=== PATIENT | female | born 1940 | race Caucasian/White ===

== ENCOUNTER 2017-07-25 10:22 | Inpatient (IN) | payer MEDICARE, MEDICAID ==
--- NOTE | 2017-07-25 10:55 | EDM.PDOC ---
ED HPI GENERAL MEDICAL PROBLEM - General Chief Complaint: Chest Pain Stated Complaint: CHEST PAIN Time Seen by Provider: 07/25/17 10:49 Source of Information: Reports: Patient, EMS, EMS Notes Reviewed History Limitations: Reports: No Limitations - History of Present Illness INITIAL COMMENTS - FREE TEXT/NARRATIVE: SHE IS A 77-YEAR-OLD FEMALE FROM [facility] WHO PRESENTS VIA EMS FOR COMPLAINT OF CHEST PAIN AND SHORTNESS OF BREATH THAT STARTED A SHORT TIME AGO. DESCRIBED SHARP, LEFT SIDED OF CHEST, AND CONSTANT. PATIENT IS DNR STATUS AND PAPERWORK WAS AVAILABLE UPON PRESENTATION TO ER. PATIENT STATES SHE FELT FINE YESTERDAY AND THIS MORNING AND HAS NO OTHER COMPLAINTS. 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: Breathing Treatments, IV/IO, Nitroglycerin, Other Medication(s), Oxygen Abdominal Pain Score (Numeric/FACES): 7 - Related Data Allergies Allergy/AdvReac Type Severity Reaction Status Date / Time Penicillins Allergy Cannot Verified 07/25/17 10:50 Remember Home Meds: Home Meds Aspirin 325 mg PO DAILY 10/28/16 [History] Furosemide 80 mg PO DAILY 10/28/16 [History] Omeprazole 20 mg PO DAILY 10/28/16 [History] Simvastatin [Zocor] 40 mg PO BEDTIME 10/28/16 [History] Isosorbide Mononitrate [Isosorbide Mononitrate ER] 30 mg PO DAILY 06/16/17 [ History] Minoxidil [Minoxidil] 20 mg PO DAILY 06/16/17 [History] Multivitamins with Iron [Daily Naye with Iron] 1 tab PO DAILY 06/16/17 [History] Pramipexole [Mirapex] 1 - 2 tab PO BEDTIME 06/16/17 [History] Sennosides/Docusate Sodium [Senna Plus Tablet] 2 tab PO BID 06/16/17 [History] Carvedilol [Coreg] 6.25 mg PO BID 07/25/17 [History] Enalapril Maleate [Vasotec] 10 mg PO DAILY 07/25/17 [History] L.acidoph,Paracasei, B.lactis [Probiotic] 1 cap PO BID 07/25/17 [History] Levofloxacin [Levaquin] 500 mg PO DAILY 07/25/17 [History] guaiFENesin [Mucinex] 600 mg PO BID 07/25/17 [History] Past Medical History HEENT History: Reports: Cataract Cardiovascular History: Reports: High Cholesterol, Hypertension Gastrointestinal History: Reports: GERD Genitourinary History: Reports: Other (See Below) Other Genitourinary History: CKD Stage 3 Endocrine/Metabolic History: Reports: Other (See Below) Other Endocrine/Metabolic History: DM Type II Dermatologic History: Reports: Cellulitis - Past Surgical History GI Surgical History: Reports: Other (See Below) Musculoskeletal Surgical History: Reports: Arthroscopic Knee, Carpal Tunnel, Other (See Below) Social & Family History - Family History Family Medical History: Noncontributory - Tobacco Use Smoking Status *Q: Unknown Ever Smoked - Caffeine Use Caffeine Use: Reports: None - Recreational Drug Use Recreational Drug Use: No ED ROS GENERAL - Review of Systems Review Of Systems: ROS reveals no pertinent complaints other than HPI. Constitutional: Reports: No Symptoms HEENT: Reports: No Symptoms Respiratory: Reports: Shortness of Breath Cardiovascular: Reports: Chest Pain Endocrine: Reports: No Symptoms GI/Abdominal: Reports: No Symptoms : Reports: No Symptoms Musculoskeletal: Reports: No Symptoms Skin: Reports: No Symptoms Neurological: Reports: No Symptoms Psychiatric: Reports: No Symptoms Hematologic/Lymphatic: Reports: No Symptoms Immunologic: Reports: No Symptoms ED EXAM, GENERAL - Physical Exam Exam: See Below Exam Limited By: No Limitations General Appearance: Alert, WD/WN, No Apparent Distress Nose: Normal Inspection, No Blood Throat/Mouth: Normal Inspection, Normal Oropharynx, No Airway Compromise Head: Atraumatic, Normocephalic Neck: Normal Inspection Respiratory/Chest: Decreased Breath Sounds, Rales Cardiovascular: No Murmur, Tachycardia GI/Abdominal: Normal Bowel Sounds, Soft, Non-Tender, No Organomegaly, No Distention, No Abnormal Bruit, No Mass Back Exam: Normal Inspection. No: CVA Tenderness (L), CVA Tenderness (R) Extremities: Pedal Edema (EXTENSIVE 3+ OF CHRONIC NATURE) Neurological: Alert, Oriented, Normal Cognition Psychiatric: Normal Affect, Normal Mood Skin Exam: Warm, Dry, Intact, Normal Color, No Rash Lymphatic: No Adenopathy EKG INTERPRETATION EKG Date: 07/25/17 Time: 10:40 Rate (Beats/Min): 115 [place]: Normal P-Wave: Present QRS: Normal Comparison: NA - No Prior EKG Course - Vital Signs Last Recorded V/S: Last Vital Signs Temp 96.7 F 07/25/17 10:38 Pulse 116 H 07/25/17 10:38 Resp 38 H 07/25/17 10:38 BP 152/80 H 07/25/17 10:38 Pulse Ox 79 L 07/25/17 10:38 - Orders/Labs/Meds Orders: Active Orders 24 hr Category Date Time Status EKG Documentation Completion [RC] ASDIRECTED Care 07/25/17 10:36 Active Chest 1V Frontal [CR] Routine Exams 07/25/17 Ordered B-TYPE NATRIURETIC PEPTIDE,BNP [CHEM] Stat Lab 07/25/17 10:40 Received CBC WITH AUTO DIFF [HEME] Stat Lab 07/25/17 10:40 Received COMPREHENSIVE METABOLIC PN,CMP [CHEM] Stat Lab 07/25/17 10:40 Received TROPONIN I [CHEM] Stat Lab 07/25/17 10:40 Received EKG 12 Lead [EK] Routine Ther 07/25/17 10:34 Ordered - Radiology Interpretation Free Text/Narrative:: CXR SHOWS MILD CHF Departure - Departure Time of Disposition: 12:19 Disposition: Admitted As Inpatient 66 Condition: Fair Clinical Impression: CHF (congestive heart failure) Qualifiers: Congestive heart failure type: unspecified congestive heart failure type Congestive heart failure chronicity: acute on chronic Qualified Code(s): I50.9 - Heart failure, unspecified Chest pain Qualifiers: Chest pain type: unspecified Qualified Code(s): R07.9 - Chest pain, unspecified Referrals: Christiane Sewell MD [Primary Care Provider] - - My Orders Last 24 Hours: My Active Orders 07/25/17 Chest 1V Frontal [CR] Routine 07/25/17 10:34 EKG 12 Lead [EK] Routine 07/25/17 10:36 EKG Documentation Completion [RC] ASDIRECTED 07/25/17 10:40 B-TYPE NATRIURETIC PEPTIDE,BNP [CHEM] Stat CBC WITH AUTO DIFF [HEME] Stat COMPREHENSIVE METABOLIC PN,CMP [CHEM] Stat TROPONIN I [CHEM] Stat - Assessment/Plan Admission H&P: Please use this note as an admission H&P Last 24 Hours: My Active Orders 07/25/17 Chest 1V Frontal [CR] Routine 07/25/17 10:34 EKG 12 Lead [EK] Routine 07/25/17 10:36 EKG Documentation Completion [RC] ASDIRECTED 07/25/17 10:40 B-TYPE NATRIURETIC PEPTIDE,BNP [CHEM] Stat CBC WITH AUTO DIFF [HEME] Stat COMPREHENSIVE METABOLIC PN,CMP [CHEM] Stat TROPONIN I [CHEM] Stat Assessment:: CHEST PAIN, CHF. Plan: ADMITTED TO INPATIENT.
[2017-07-25 11:15] LABS: CHLORIDE,CL 109 mmol/L (98-115); SODIUM,NA 143 mmol/L (136-145)
[2017-07-25] MEDS ORDERED: Furosemide 40 MG/4 ML VIAL IVPUSH ONE (11:29)
[2017-07-25] MEDS ORDERED: Magnesium Hydroxide 400 MG/5 ML Susp 30 ML Cup PO PRN (12:41)
[2017-07-25] MEDS ORDERED: Furosemide 40 MG Tab PO SCH (13:45)
[2017-07-25] MEDS ORDERED: Sodium Chloride 0.9% 250 ML IV SCH (17:45)
[2017-07-25] MEDS ORDERED: Metoprolol Succinate 25 MG Tab.ER PO SCH (17:45)
[2017-07-25] MEDS ORDERED: Carvedilol 6.25 MG Tab PO SCH (18:00)
[2017-07-25] MEDS: Insuln Aspart Prot/Insulin Aspart 100 Units/ML 3 ML FlexPen SUBCUT SCH (18:05)
[2017-07-25] MEDS: Carvedilol 6.25 MG Tab PO SCH (18:46)
[2017-07-25] MEDS: Simvastatin 20 MG Tab PO SCH (21:05)
[2017-07-25] MEDS ORDERED: Non-Formulary Medication 1 Each (Hydrocodone/Acetaminophen [Hydrocodon-Acetaminoph 7.5-325 PO PRN (21:20)
[2017-07-25] MEDS: Acetaminophen/HYDROcodone 325-5 MG Tab PO PRN (22:21)
[2017-07-26] MEDS: Furosemide 40 MG Tab PO SCH ×2 (06:36→12:26)
[2017-07-26] MEDS: Omeprazole 20 MG Cap.CR PO SCH (08:03)
[2017-07-26] MEDS: Carvedilol 6.25 MG Tab PO SCH ×2 (08:04→17:54)
[2017-07-26] MEDS: Isosorbide Mononitrate 30 MG Tab.ER PO SCH (08:05)
[2017-07-26] MEDS: Aspirin 325 MG Tab.EC PO SCH (08:05)
[2017-07-26] MEDS: Insuln Aspart Prot/Insulin Aspart 100 Units/ML 3 ML FlexPen SUBCUT SCH ×2 (08:05→17:55)
[2017-07-26] MEDS: Levofloxacin 500 MG Tab PO SCH (08:06)
--- NOTE | 2017-07-26 08:25 | PN ---
07/25/2017PATIENT NAME: VERONICA BEAULIEU SUBJECTIVE: This is 77-year-old female who was admitted to the emergency room today with shortness of breath and chest pain. Her lab results have shown that she does have an elevated troponin I of 0.37. On repeat at 4 p.m. this afternoon, the troponin I went up to 1.84. The patient is aware that she is having a myocardial infarction. She is a DNR/DNI and is full aware of her condition as well as prognosis. I did review with her options for transfer to a higher level of care; however, because of her advanced directive, she does not wish to have that done. She does have a history of congestive heart failure and her BNP today was 580. Other significant lab value, she did have a white count today of 13.9. She was started on Levaquin yesterday for bronchial infection, and we will continue on the Levaquin while she is here. She has been hypotensive since she has arrived with systolic blood pressure in the 90s and diastolic in the 50s. Her heart rhythm has been tachycardic at 112 to 120 beats per minute. Her oxygen saturations have ranged from 78% to 96%, she is on oxygen therapy. We did place her on telemetry to monitor for [id number] rhythms that could be possibly treatable to make her more comfortable. We will repeat lab work in the morning to include a CBC, CMP as well as troponin I. She is a [facility] patient and was to have a home evaluation to see if she was ready to be discharged from the [facility]. She has been in the [facility] in [place], [place], due to lower extremity swelling as well as cellulitis. This has improved considerably over a period of time, which has been a month that she has been there. Because of her hypotension and her tachycardia, we will give her a fluid bolus of 250 mL of normal saline given over 2 hours and resume her Coreg or carvedilol at 6.25 mg b.i.d. We will monitor closely for desaturation and pulmonary edema. I have discussed the case with Christiane Callejas, and she fully agrees with the plan of care. I have also spoken with the patient's daughter, Maria Antonia Jensen, she was just walking into the hospital as I was preparing to call her. Maria Antonia, her , and two children were made aware of Veronica's condition and the plan of care and they fully agree with our medical care plan. /[id number]/MODL
[2017-07-26] MEDS ORDERED: MINOXIDIL PO SCH (09:00)
[2017-07-26] MEDS ORDERED: Nitroglycerin 0.4 MG Tab.SL SL PRN (11:35)
[2017-07-26] MEDS ORDERED: Lidocaine 2% 100 MG/5 ML Syringe IVPUSH PRN (11:35)
[2017-07-26] MEDS ORDERED: Atropine 0.1 MG/ML 10 ML Syringe IVPUSH PRN (11:35)
[2017-07-26] MEDS ORDERED: EPINEPHrine 1:10,000 1 MG/10 ML Syringe IVPUSH PRN (11:35)
[2017-07-26] MEDS ORDERED: Acetaminophen/HYDROcodone 325-5 MG Tab PO PRN (11:55)
[2017-07-26] MEDS: Acetaminophen/HYDROcodone 325-5 MG Tab PO PRN ×2 (15:29→23:04)
--- NOTE | 2017-07-26 19:25 | PN ---
07/26/2017 PATIENT NAME: VERONICA BEAULIEU SUBJECTIVE: This is a 77-year-old female who was admitted to the hospital yesterday on 07/25/2017 from the emergency room. Her chief complaint at that time was some chest pain and shortness of breath. She did have an elevated troponin on admission of 0.37, later yesterday, the troponin peaked at 1.84. This morning, the troponin is 1.11, which has improved. She was hypotensive yesterday. Her ANGELIQUE inhibitor was discontinued. She was continued on carvedilol as previously prescribed at 6.25 mg daily. We did give her a 250 mL bolus of normal saline today, her blood pressure has improved considerably. Her blood pressure today has ranged between 117/56, 126/58, and 143/69. Clinically, she is feeling better. She states that she does not have any chest pain. She states she does get short of breath at some point in time. She does have a history of congestive heart failure in the past. Her admission BNP was 580. Her white blood cell count yesterday was 13.9. She is on oral Levaquin for possible bronchitis prior to admission. Hemoglobin was 9.3 yesterday, now 8.1 today. She has been on telemetry and she has been in a sinus rhythm to sinus tachycardia, pulse ranging from 70s to 80s with a high of 100. O2 saturations are 96% to 97% on 1 L of oxygen. She has been at the [place], [place] with cellulitis of her lower legs and some open ulcerations to her right lower extremity. These have improved considerably. Yesterday, prior to admission, she was scheduled to have a home visit to see if she was ready for discharge. This will obviously be postponed now. OBJECTIVE: VITAL SIGNS: On examination, temp is 97.7, pulse 83, respirations 20, blood pressure 143/69. SKIN: Warm and dry to touch, somewhat pale. CARDIAC: Reveals S1, S2 to be normal. Rate and rhythm are regular. She does have a 2/6 murmur holosystolic. LUNGS: Clear, possibly diminished. I do not hear any rales, wheezes, or rhonchi. Lower extremity, she does have an open ulceration on the right lower extremity, which is scabbed over. The edema to the right lower extremity has greatly improved from previous. However, I do not have any luxury of comparison. She does have some edema in her right foot distal to where the right lower extremity is wrapped. IMPRESSION: 1. Myocardial infarction. This is improving. Her troponins are trending downward. We will keep her in the hospital until her troponins are near normal if not normal. 2. Congestive heart failure. This is stable at this time. We will continue her on Coreg as well as Lasix. 3. We will keep on her isosorbide as previously prescribed for congestive heart failure as well. 4. Bronchitis, prior to admission. She will continue on oral Levaquin for this. 5. She is diabetic, blood sugars have been stable. We will continue her on her diabetic regimen. 6. Gastroesophageal reflux disease. We will continue her on omeprazole. 7. Hypercholesterolemia. She is on a statin. We will continue to follow her throughout the weekend. /[id number]/MODL
[2017-07-26] MEDS: Simvastatin 20 MG Tab PO SCH (20:41)
[2017-07-27] MEDS: Acetaminophen/HYDROcodone 325-5 MG Tab PO PRN ×3 (00:04→20:00)
[2017-07-27] MEDS: Furosemide 40 MG Tab PO SCH ×2 (06:41→11:19)
[2017-07-27 07:43] LABS: CHLORIDE,CL 108 mmol/L (98-115); SODIUM,NA 141 mmol/L (136-145)
[2017-07-27] MEDS: Omeprazole 20 MG Cap.CR PO SCH (07:55)
[2017-07-27] MEDS: Insuln Aspart Prot/Insulin Aspart 100 Units/ML 3 ML FlexPen SUBCUT SCH ×2 (07:56→17:48)
[2017-07-27] MEDS: Carvedilol 6.25 MG Tab PO SCH (07:56)
[2017-07-27] MEDS: Isosorbide Mononitrate 30 MG Tab.ER PO SCH (08:27)
[2017-07-27] MEDS: Aspirin 325 MG Tab.EC PO SCH (08:27)
[2017-07-27] MEDS: Levofloxacin 500 MG Tab PO SCH (08:28)
[2017-07-27] MEDS ORDERED: Carvedilol 6.25 MG Tab PO ONE (10:45)
--- NOTE | 2017-07-27 11:16 | PN ---
07/27/2017 PATIENT NAME: VERONICA BEAULIEU SUBJECTIVE: This is a 77-year-old female, who was admitted through the emergency room on 07/25/2017, with chest pain and shortness of breath. The patient did sustain a non-STEMI. She is a DNI/DNR and chose medical treatment. Her initial troponin I was 0.37 and peaked at 1.84 on 07/25/2017, it has now come down yesterday to 1.11 and today 0.22. She is feeling and looking incredibly better than she was on admission. She was taking minoxidil for hypertension. This was discontinued because she was somewhat hypotensive upon admission. We do not have minoxidil, so we will give her lisinopril 5 mg starting today. When talking to the patient, she states she feels good. She has some baseline shortness of breath. However, no chest pain at this time. She has been in a long-term care facility in [place], [place] for cellulitis of her lower extremities and ulcerations of the same. These have improved over the month that she has been at the [facility]. Today that she was admitted to the hospital, she was scheduled for a home evaluation, to be discharged back to her own home, this obviously will be postponed until after she is discharged. PHYSICAL EXAMINATION: VITAL SIGNS: Temperature is 98, pulse 84, respirations 20, blood pressure 160/88, O2 saturation is 95% on 2 L of oxygen. SKIN: Warm and dry to touch. CARDIAC: Reveals S1, S2 to be normal. Rate and rhythm are regular. She does have a 2/6 murmur, holosystolically. LUNGS: Clear without rales, wheezes, or rhonchi. She does have some pedal edema bilaterally. EXTREMITIES: The edema of the right lower extremity, which was present with cellulitis with the ulcerations has improved per the patient's report. IMPRESSION: 1. Myocardial infarction. Troponin I is trending downward at 0.22. We will order another troponin for morning and plan for discharge either tomorrow or Saturday. I am not certain that the [facility] will [facility] her back tomorrow being it is a weekend, however, staying until Saturday is no problems since she does meet inpatient criteria. 2. Congestive heart failure. This is stable at this time. We will continue her on Coreg as well as Lasix. She will also continue on isosorbide. 3. Bronchitis. Prior to admission, she is on oral Levaquin and her white count has normalized. 4. History of diabetes, has been stable. Continue same regimen. 5. Gastroesophageal reflux disease. Continue omeprazole. 6. Hypercholesterolemia. She is on a statin. We will continue the statin as before. 7. Hypertension. She was hypotensive upon admission. Her ANGELIQUE inhibitor was discontinued. We will add lisinopril 5 mg daily to her medication regimen and repeat labs tomorrow and continue to monitor. Dr. Christiane Sewell is aware of my findings and has been following the patient electronically. /[id number]/MODL
[2017-07-27] MEDS ORDERED: Carvedilol 6.25 MG Tab PO SCH (18:00)
[2017-07-27] MEDS: Simvastatin 20 MG Tab PO SCH (20:00)
[2017-07-28] MEDS: Acetaminophen/HYDROcodone 325-5 MG Tab PO PRN ×3 (03:30→22:03)
[2017-07-28] MEDS ORDERED: Morphine 2 MG/ML Syringe IVPUSH PRN (06:16)
[2017-07-28] MEDS: Furosemide 40 MG Tab PO SCH ×2 (06:53→12:03)
[2017-07-28] MEDS: Omeprazole 20 MG Cap.CR PO SCH (07:32)
[2017-07-28] MEDS: Isosorbide Mononitrate 30 MG Tab.ER PO SCH ×2 (07:32→08:34)
[2017-07-28] MEDS: Carvedilol 12.5 MG Tab PO SCH ×4 (07:33→18:14)
[2017-07-28] MEDS: Insuln Aspart Prot/Insulin Aspart 100 Units/ML 3 ML FlexPen SUBCUT SCH ×2 (08:33→18:16)
[2017-07-28] MEDS: Aspirin 325 MG Tab.EC PO SCH (08:34)
[2017-07-28] MEDS: Levofloxacin 500 MG Tab PO SCH (08:35)
[2017-07-28] MEDS ORDERED: GI Cocktail 45 ML BOTTLE PO ONE (10:00)
[2017-07-28] MEDS: Simvastatin 20 MG Tab PO SCH (20:12)
[2017-07-29] MEDS: Acetaminophen/HYDROcodone 325-5 MG Tab PO PRN (06:21)
[2017-07-29] MEDS: Furosemide 40 MG Tab PO SCH (06:21)
[2017-07-29] MEDS: Omeprazole 20 MG Cap.CR PO SCH (07:34)
[2017-07-29] MEDS: Carvedilol 12.5 MG Tab PO SCH (07:38)
[2017-07-29 07:39] VITALS: BP 174/87
[2017-07-29 07:39] LABS: CHLORIDE,CL 105 mmol/L (98-115); SODIUM,NA 140 mmol/L (136-145)
--- NOTE | 2017-07-29 08:21 | PN ---
07/27/2017PATIENT NAME: VERONICA BEAULIEU CHICO ADDENDUM: In my note, I stated that we would add lisinopril in for her blood pressure. I spoke with Dr. Christiane Callejas who recommended we increase her Coreg rather than start the ANGELIQUE inhibitor at this time. She was taking 6.25 mg of Coreg b.i.d., we increased the morning dose to 12.5, and continued the evening dose to 6.25. /[id number]/MODL
--- NOTE | 2017-07-29 08:21 | PN ---
07/28/2017PATIENT NAME: VERONICA BEAULIEU SUBJECTIVE: This is a 77-year-old female, who was admitted to the hospital on 07/25/2017 to the emergency room for chest pain and shortness of breath. She was found to have a myocardial infarction with her troponin peaking at 1.84. It has been trending down since that time with a troponin today of 0.11. She had an episode in middle of the night where she had some chest/epigastric pain. She was given a nitroglycerin as well as 2 mg of morphine which did sorin the pain. She became hypertensive as well as tachycardic during this episode. My fear was that she was extended her CT. Troponin this morning is as previously reported. I entertained the thought of discharging her today, but since she had that episode last night, I would be very reluctant to think about discharge. Tomorrow would be more likely as long as she stays stable. She is a DNR/DNI. She does have a history of hypertension and was hypotensive upon admission. Her ANGELIQUE inhibitor was discontinued at that time. Yesterday, we entertained possibility of adding an ANGELIQUE inhibitor. However, after I talked to Christiane Callejas, her primary care provider, she recommended that we adjust the Coreg that she was already taking more for cardioprotection. Prior to yesterday, she was on 6.25 mg of Coreg b.i.d. We increased her morning dose to 12.5 mg and kept her evening dose at 6.25. She continues to be hypertensive today. We will change the Coreg to 12.5 mg b.i.d. When I spoke with the patient and examined the patient this morning, she states she is more comfortable. She did not sleep well last night. The episode of chest pain did improve with the medications, also after having a bowel movement. I do have question whether this is cardiac versus gastrointestinal pain. She is on omeprazole for gastroesophageal reflux disease. She is on telemetry, sinus rhythm with a rate of 71 beats per minute without ectopics. PHYSICAL EXAMINATION: VITAL SIGNS: Temp is 97.6, pulse is 85, respirations 24, blood pressure 162/85, O2 saturation is 98% on 2 L of oxygen. SKIN: Warm, somewhat pale. CARDIAC: Reveals S1, S2 to be normal. Rate and rhythm are regular. She does have a 2/6 holosystolic cardiac murmur. LUNGS: Clear. I do not auscultate any rales, rhonchi, or wheezing. ABDOMEN: Soft. EXTREMITIES: She does have wraps to her lower extremities from previous cellulitis. The ulceration to the right lower extremity is stable at this time. IMPRESSION: 1. Myocardial infarction. Question whether or not this is extending. However, the troponin today was 0.11, whereas it was 0.22 yesterday, it peaked at 1.84 on July 26 2017. Also of note, the troponin was drawn at the same time that the patient was having the episode of chest pain, so we will repeat her troponin tomorrow to see if there is evidence of her extending. She will need an echocardiogram as an outpatient. The patient was concerned of how big of a heart attack she had. This would be best determined by echocardiogram. We will continue to monitor closely with telemetry. 2. Congestive heart failure, this is stable. We will continue her on Coreg, Lasix, and isosorbide. 3. She was treated for bronchitis with oral Levaquin prior to her admission, this is stable. 4. History of diabetes, this is stable. 5. Gastroesophageal reflux disease with some question of the episodic chest pain being GI related. Continue omeprazole and we will order a GI cocktail for her. 6. Hypercholesterolemia. She continues on statin therapy. 7. Hypertension. She was hypotensive upon admission. ANGELIQUE inhibitor was held. We entertained starting lisinopril yesterday, however, due to the cardioprotective properties of Coreg, we decided to titrate the dose of Coreg for blood pressure control. The ANGELIQUE will be added in later. We will increase her Coreg to 12.5 mg b.i.d. today. /[id number]/MODL
--- NOTE | 2017-07-29 08:21 | PN ---
07/27/2017PATIENT NAME: VERONICA BEAULIEU CHICO ADDENDUM: This is the second addendum on Veronica Beaulieu. Documentation in regard to the Coreg. The Coreg is being increased due to cardioprotection and blood pressure control. ANGELIQUE inhibitor will be restarted as the blood pressure allows. Documentation is already in place for holding the ANGELIQUE inhibitor due to hypotension on admission. /[id number]/MODL
[2017-07-29] MEDS: Insuln Aspart Prot/Insulin Aspart 100 Units/ML 3 ML FlexPen SUBCUT SCH (08:23)
[2017-07-29] MEDS: Isosorbide Mononitrate 30 MG Tab.ER PO SCH (08:25)
[2017-07-29] MEDS: Levofloxacin 500 MG Tab PO SCH (08:26)
[2017-07-29] MEDS: Aspirin 325 MG Tab.EC PO SCH (08:26)
--- NOTE | 2017-07-29 08:55 | PCM.DCSUM1 ---
Discharge Summary - Hospital Course Free Text/Narrative:: Nicole is being discharged today from an inpatient stay for NSTEMI. She was admitted 07/25/17 - 07/29/17. She had left sided chest pain with associated SOB. Troponin peaked at 1.8 and has trended down. She had an episode of chest pain yesterday (07/28/17) which has resolved and she is feeling much better today. Her BP's have been elevated. Initially they were low at 97/58 and so her antihypertensive medications were held. She was also given a small bolus of fluid (250 mL over 2 hours). Coreg gradually added back on at 12.5 mg PO BID (increase from 6.25 BID as an outpatient). Enalapril has been held but will be restarted when she is discharged. She will also resume her minoxidil. BP's can be managed as an outpatient. She has been struggling with lows and high's as an outpatient at [facility] where she resides. She did not want any aggressive measures done for her NSTEMI and so she was managed locally here in [place]. Bilateral LE edema has improved although is still significant. She continues on levofloxacin for bronchitis. She will have completed her course on discharge and this can be discontinued. Respiratory symptoms have resolved. - Discharge Data Discharge Date: 07/29/17 Discharge Disposition: DC/Tfer to [facility] 03 Condition: Good - Discharge Diagnosis/Problem(s) (1) NSTEMI (non-ST elevated myocardial infarction) SNOMED Code(s): 220918391 ICD Code: I21.4 - NON-ST ELEVATION (NSTEMI) MYOCARDIAL INFARCTION Status: Acute Current Visit: Yes (2) Bronchitis SNOMED Code(s): 38401603 ICD Code: J40 - BRONCHITIS, NOT SPECIFIED ACUTE OR CHRONIC Status: Acute Current Visit: Yes (3) Lower extremity edema SNOMED Code(s): 834988428 ICD Code: R60.0 - LOCALIZED EDEMA Status: Acute Current Visit: Yes (4) CHF (congestive heart failure) SNOMED Code(s): 91192472 ICD Code: I50.9 - HEART FAILURE, UNSPECIFIED Status: Acute Current Visit : Yes Qualifiers: Congestive heart failure type: unspecified congestive heart failure type Congestive heart failure chronicity: acute on chronic Qualified Code(s): I50.9 - Heart failure, unspecified (5) Hypertension SNOMED Code(s): 34296115 ICD Code: I10 - ESSENTIAL (PRIMARY) HYPERTENSION Status: Acute Current Visit: Yes (6) Diabetes SNOMED Code(s): 79236109 ICD Code: E11.9 - TYPE 2 DIABETES MELLITUS WITHOUT COMPLICATIONS Status: Acute Current Visit: Yes (7) Pulmonary hypertension SNOMED Code(s): 95676802 ICD Code: I27.20 - PULMONARY HYPERTENSION, UNSPECIFIED Status: Acute Current Visit: Yes - Patient Instructions Diet: Diabetic Diet Activity: As Tolerated - Discharge Plan Prescriptions/Med Rec: Carvedilol [Coreg] 12.5 mg PO BIDMEALS #60 tablet Nitroglycerin [IJP: Nitroglycerin] 0.4 mg SL ASDIRECTED PRN #60 tablet, sublingual PRN Reason: Chest Pain Home Medications: Home Meds Aspirin 325 mg PO DAILY 10/28/16 [History] Furosemide 40 mg PO BID 10/28/16 [History] Omeprazole 20 mg PO DAILY 10/28/16 [History] Simvastatin [Zocor] 40 mg PO BEDTIME 10/28/16 [History] Isosorbide Mononitrate [Isosorbide Mononitrate ER] 30 mg PO DAILY 06/16/17 [ History] Minoxidil 20 mg PO DAILY 06/16/17 [History] Multivitamins with Iron [Daily Naye with Iron] 1 tab PO DAILY 06/16/17 [History] Pramipexole [Mirapex] 0.125 mg PO BID@1800,2100 06/16/17 [History] Sennosides/Docusate Sodium [Senna Plus Tablet] 2 tab PO BID 06/16/17 [History] Enalapril Maleate [Vasotec] 10 mg PO DAILY 07/25/17 [History] Hydrocodone/Acetaminophen [Hydrocodon-Acetaminoph 7.5-325] 1 - 2 tab PO Q6H PRN 07/25/17 [History] Insulin Aspart Protam & Aspart [Novolog Mix 70-30 Flexpen Syrn] 5 unit SQ DAILY@ 1800 07/25/17 [History] Insulin Aspart Protam & Aspart [Novolog Mix 70-30 Flexpen Syrn] 15 unit SQ DAILY @0800 07/25/17 [History] L.acidoph,Paracasei, B.lactis [Probiotic] 1 cap PO BID@1200,1800 07/25/17 [ History] Magnesium Hydroxide [Milk of Magnesia] 30 ml PO DAILY PRN 07/25/17 [History] guaiFENesin [Mucinex] 600 mg PO BID 07/25/17 [History] Carvedilol [Coreg] 12.5 mg PO BIDMEALS #60 tablet 07/29/17 [Rx] Nitroglycerin [IJP: Nitroglycerin] 0.4 mg SL ASDIRECTED PRN #60 tablet, sublingual 07/29/17 [Rx] Referrals: Christiane Sewell MD [Primary Care Provider] - - General Info Date of Service: 07/29/17 - Review of Systems Systems Review Comment: 10 point ROS obtained, all pertinent positives listed in the HPI, all other systems negative. - Patient Data Vitals - Most Recent: Last Vital Signs Temp 97.1 F 07/29/17 06:50 Pulse 85 07/29/17 07:38 Resp 20 07/29/17 06:50 BP 174/87 H 07/29/17 08:25 Pulse Ox 95 07/29/17 08:35 Weight - Most Recent: 225 lb 4 oz I&O - Last 24 hours: Intake & Output 07/28/17 07/29/17 07/29/17 22:59 06:59 14:59 Intake Total 650 250 Output Total 1100 950 Balance -450 -700 Lab Results - Last 24 hrs: Laboratory Results - last 24 hr 07/28/17 07/28/17 07/28/17 Range/Units 11:59 17:47 18:50 WBC (5.0-10.0) 10^3/uL RBC (3.80-5.50) 10^6/uL Hgb (12.0-16.0) g/dL Hct (37.0-47.0) % MCV (82.0-92.0) fL MCH (27.0-31.0) pg MCHC (32.0-36.0) g/dL RDW (11.5-14.5) % Plt Count (150-300) 10^3/uL MPV (7.4-10.4) fL Neut % (Auto) (50.0-70.0) % Lymph % (Auto) (20.0-40.0) % [place] % (Auto) (2.0-8.0) % Eos % (Auto) (1.0-3.0) % Baso % (Auto) (0.0-1.0) % Neut # (Auto) (2.5-7.0) 10^3/uL Lymph # (Auto) (1.0-4.0) 10^3/uL [place] # (Auto) (0.1-0.8) 10^3/uL Eos # (Auto) (0.1-0.3) 10^3/uL Baso # (Auto) (0.0-0.1) 10^3/uL Sodium (136-145) mmol/L Potassium (3.3-5.3) mmol/L Chloride (98-115) mmol/L Carbon Dioxide (21.0-32.0) mmol/L BUN (6-25) mg/dL Creatinine (0.51-1.17) mg/dL Est Cr Clr Drug Dosing mL/min Estimated GFR (MDRD) mL/min Glucose (70-110) mg/dL POC Glucose 106 103 (74-106) mg/dl Calcium (8.7-10.3) mg/dL Total Bilirubin (0.2-1.0) mg/dL AST (15-37) U/L ALT (12-78) U/L Alkaline Phosphatase (46-116) IU/L Troponin I 0.21 H* (0.00-0.070) ng/mL Total Protein (6.4-8.2) g/dL Albumin (3.00-4.80) g/dL 07/29/17 07/29/17 07/29/17 Range/Units 06:24 07:05 07:05 WBC 5.6 (5.0-10.0) 10^3/uL RBC 3.23 L (3.80-5.50) 10^6/uL Hgb 9.2 L (12.0-16.0) g/dL Hct 28.9 L (37.0-47.0) % MCV 89.5 (82.0-92.0) fL MCH 28.5 (27.0-31.0) pg MCHC 31.8 L (32.0-36.0) g/dL RDW 14.5 (11.5-14.5) % Plt Count 356 H (150-300) 10^3/uL MPV 7.4 (7.4-10.4) fL Neut % (Auto) 76.0 H (50.0-70.0) % Lymph % (Auto) 11.2 L (20.0-40.0) % [place] % (Auto) 7.5 (2.0-8.0) % Eos % (Auto) 5.3 H (1.0-3.0) % Baso % (Auto) 0.0 (0.0-1.0) % Neut # (Auto) 4.3 (2.5-7.0) 10^3/uL Lymph # (Auto) 0.6 L (1.0-4.0) 10^3/uL [place] # (Auto) 0.4 (0.1-0.8) 10^3/uL Eos # (Auto) 0.3 (0.1-0.3) 10^3/uL Baso # (Auto) 0.0 (0.0-0.1) 10^3/uL Sodium 140 (136-145) mmol/L Potassium 5.3 (3.3-5.3) mmol/L Chloride 105 (98-115) mmol/L Carbon Dioxide 27.3 (21.0-32.0) mmol/L BUN 17 (6-25) mg/dL Creatinine 0.90 (0.51-1.17) mg/dL Est Cr Clr Drug Dosing 53.84 mL/min Estimated GFR (MDRD) > 60 mL/min Glucose 131 H (70-110) mg/dL POC Glucose 121 H (74-106) mg/dl Calcium 8.8 (8.7-10.3) mg/dL Total Bilirubin 0.4 (0.2-1.0) mg/dL AST 24 (15-37) U/L ALT 23 (12-78) U/L Alkaline Phosphatase 84 (46-116) IU/L Troponin I 0.14 H* (0.00-0.070) ng/mL Total Protein 6.8 (6.4-8.2) g/dL Albumin 2.40 L (3.00-4.80) g/dL Med Orders - Current: Current Medications Hydrocodone Bitart/Acetaminophen ([place] 325-5 Mg) 1 - 2 tab PO Q6H PRN PRN Reason: Pain Last Admin: 07/29/17 06:21 Dose: 2 tab Aspirin (Ecotrin) 325 mg PO DAILY [facility] Last Admin: 07/29/17 08:26 Dose: 325 mg Atropine Sulfate (Atropine 0.1 Mg/Ml) 0 mg IVPUSH ASDIRECTED PRN PRN Reason: Heart Carvedilol (Coreg) 12.5 mg PO BIDMEALS [facility] Last Admin: 07/29/17 07:38 Dose: 12.5 mg Epinephrine HCl (Epinephrine 1:10,000) 1 mg IVPUSH ASDIRECTED PRN PRN Reason: Heart Furosemide (Lasix) 40 mg PO BID@0700,1200 [facility] Last Admin: 07/29/17 06:21 Dose: 40 mg Insulin Aspart (Novolog Mix 70-30) 15 unit SUBCUT DAILY@0800 [facility] Last Admin: 07/29/17 08:23 Dose: 15 units Insulin Aspart (Novolog Mix 70-30) 5 unit SUBCUT DAILY@1800 [facility] Last Admin: 07/28/17 18:16 Dose: 5 units Isosorbide Mononitrate (Imdur) 30 mg PO DAILY [facility] Last Admin: 07/29/17 08:25 Dose: 30 mg Levofloxacin (Levaquin) 500 mg PO DAILY [facility] Stop: 07/31/17 09:01 Last Admin: 07/29/17 08:26 Dose: 500 mg Lidocaine HCl (Xylocaine 2%) 0 mg IVPUSH ASDIRECTED PRN PRN Reason: Heart Magnesium Hydroxide (Milk Of Magnesia) 30 ml PO DAILY PRN PRN Reason: Constipation Morphine Sulfate (Morphine) 2 mg IVPUSH Q2H PRN PRN Reason: Chest Pain Last Admin: 07/28/17 06:50 Dose: 2 mg Nitroglycerin (Nitrostat) 0.4 mg SL ASDIRECTED PRN PRN Reason: Heart Last Admin: 07/28/17 05:15 Dose: 0.4 mg Non-Formulary Medication (Minoxidil) 20 mg PO DAILY [facility] Omeprazole (Omeprazole) 20 mg PO ACBREAKFAST [facility] Last Admin: 07/29/17 07:34 Dose: 20 mg Senna/Docusate Sodium (Senna Plus) 2 tab PO BID@0900,1800 [facility] Last Admin: 07/29/17 08:26 Dose: 2 tab Simvastatin (Zocor) 40 mg PO BEDTIME [facility] Last Admin: 07/28/17 20:12 Dose: 40 mg Discontinued Medications Al Hydroxide/Mg Hydroxide (Gi Cocktail) 45 ml PO ONETIME ONE Stop: 07/28/17 10:01 Last Admin: 07/28/17 10:27 Dose: 45 ml Carvedilol (Coreg) 6.25 mg PO BIDMEALS [facility] Carvedilol (Coreg) 6.25 mg PO BIDMEALS [facility] Last Admin: 07/27/17 07:56 Dose: 6.25 mg Carvedilol (Coreg) 12.5 mg PO DAILY [facility] Last Admin: 07/28/17 08:34 Dose: Not Given Carvedilol (Coreg) 6.25 mg PO DAILY@1800 [facility] Last Admin: 07/27/17 17:47 Dose: 6.25 mg Carvedilol (Coreg) 6.25 mg PO ONETIME ONE Stop: 07/27/17 10:46 Last Admin: 07/27/17 11:21 Dose: 6.25 mg Furosemide (Lasix) 20 mg IVPUSH NOW ONE Stop: 07/25/17 11:30 Last Admin: 07/25/17 11:45 Dose: 20 mg Furosemide (Lasix) 40 mg PO BID@0700,1200 [facility] Sodium Chloride (Normal Saline) 250 mls @ 125 mls/hr IV ASDIRECTED [facility] Stop: 07/25/17 19:44 Last Admin: 07/25/17 18:04 Dose: 125 mls/hr Metoprolol Succinate (Toprol Xl) 12.5 mg PO BEDTIME [facility] Last Admin: 07/25/17 18:16 Dose: Not Given Non-Formulary Medication (Hydrocodone/Acetaminophen [Hydrocodon-Acetaminoph 7.5- 325]) 1 - 2 tab PO Q6H PRN PRN Reason: Pain - Exam General: Reports: Alert, Oriented, Cooperative, No Acute Distress Lungs: Reports: Clear to Auscultation, Normal Respiratory Effort Cardiovascular: Reports: Regular Rate, Regular Rhythm, No Murmurs GI/Abdominal Exam: Normal Bowel Sounds Extremities: Pedal Edema (Bilateral pedal edema that is quite significant, R>L, improved, however, from when I saw her about 3 weeks ago.) *Q Meaningful Use (DIS) - VTE *Q VTE Criteria *Q: - Stroke *Q Stroke Criteria *Q: - AMI *Q AMI Criteria *Q:
== END 2017-07-29 10:10 | DRG 282 ==
LOC: KA.ED 10:22 → KA.MS 12:40
PROVIDERS: ADMIT Physician Assistant Surgical
DX: I21.4 Non-ST elevation (NSTEMI) myocardial infarction (principal); I50.9 Heart failure, unspecified; R07.9 Chest pain, unspecified; I12.9 Hypertensive chronic kidney disease with stage 1 through stage 4 chronic kidney disease, or unspecified chronic kidney disease; E11.22 Type 2 diabetes mellitus with diabetic chronic kidney disease; N18.3 Chronic kidney disease, stage 3 (moderate); K21.9 Gastro-esophageal reflux disease without esophagitis; E78.00 Pure hypercholesterolemia, unspecified; Z88.0 Allergy status to penicillin; Z79.82 Long term (current) use of aspirin; Z79.899 Other long term (current) drug therapy; Z66 Do not resuscitate; J40 Bronchitis, not specified as acute or chronic; I27.20 Pulmonary hypertension, unspecified
CPT/HCPCS: 36415; 71010; 80053; 83880; 84484; 85025; 87070; 96374; 99285; J1940; 80048; 82962; 93005; A9270-GY; J1815-GY; J2270; J7050

== ENCOUNTER 2018-11-04 13:45 | Inpatient (IN) | payer MEDICARE, MEDICAID ==
[2018-11-04] MEDS ORDERED: Ondansetron 4 MG Tab.DIS PO PRN (14:34)
[2018-11-04] MEDS ORDERED: Magnesium Hydroxide 400 MG/5 ML Susp 30 ML Cup PO PRN (14:37)
[2018-11-04] MEDS ORDERED: Acetaminophen/HYDROcodone 325-5 MG Tab PO PRN (14:37)
[2018-11-04] MEDS ORDERED: Nitroglycerin 0.4 MG Tab.SL SL PRN (14:37)
[2018-11-04] MEDS ORDERED: Albuterol/Ipratropium 3.0-0.5 MG/3 ML Neb Soln NEB PRN (14:40)
[2018-11-04] MEDS: Furosemide 40 MG Tab PO SCH (15:28)
[2018-11-04] MEDS: Sodium Chloride 0.9% 100 ML IV SCH (15:37)
[2018-11-04] MEDS: Levofloxacin/Dextrose 5%-Water 100 ML IV SCH (15:38)
[2018-11-04] MEDS ORDERED: Levofloxacin/Dextrose 5%-Water 50 ML IV SCH (16:30)
[2018-11-04] MEDS: Enoxaparin 40 MG/0.4 ML Syringe SUBCUT SCH (18:09)
[2018-11-04] MEDS: Carvedilol 12.5 MG Tab PO SCH (18:09)
[2018-11-04] MEDS: Insuln Aspart Prot/Insulin Aspart 100 Units/ML 3 ML FlexPen SUBCUT SCH (18:09)
[2018-11-04] MEDS: Pramipexole 0.125 MG Tab PO SCH ×2 (18:09→20:42)
[2018-11-04] MEDS: Sodium Chloride 0.9% 10 ML Syringe FLUSH PRN (20:39)
[2018-11-04] MEDS: B.Bifidum/B.Longum/L.Acidophilus/L.Rhamnosus (Probiotic) Cap PO SCH (20:41)
[2018-11-04] MEDS: Enalapril 5 MG Tab PO SCH (20:41)
[2018-11-04] MEDS: Simvastatin 20 MG Tab PO SCH (20:42)
[2018-11-05] MEDS: B.Bifidum/B.Longum/L.Acidophilus/L.Rhamnosus (Probiotic) Cap PO SCH ×2 (06:08→20:09)
[2018-11-05] MEDS: Sodium Chloride 0.9% 10 ML Syringe FLUSH PRN ×2 (06:11→16:23)
[2018-11-05] MEDS: Omeprazole 20 MG Cap.CR PO SCH (06:38)
[2018-11-05 07:41] LABS: ANION GAP 12.5 mmol/L (5-15)
[2018-11-05] MEDS: Enalapril 5 MG Tab PO SCH ×2 (08:15→20:10)
[2018-11-05] MEDS: Multivitamins with Minerals/Iron/Folic Acid/Lycopene Tab PO SCH (08:16)
[2018-11-05] MEDS: Aspirin 325 MG Tab.EC PO SCH (08:16)
[2018-11-05] MEDS: Isosorbide Mononitrate 30 MG Tab.ER PO SCH (08:16)
[2018-11-05] MEDS: Insuln Aspart Prot/Insulin Aspart 100 Units/ML 3 ML FlexPen SUBCUT SCH ×2 (08:16→17:56)
[2018-11-05] MEDS: Furosemide 40 MG Tab PO SCH ×2 (08:17→16:23)
[2018-11-05] MEDS: Carvedilol 12.5 MG Tab PO SCH ×2 (08:17→17:56)
[2018-11-05] MEDS: Sodium Chloride 0.9% 100 ML IV SCH (16:23)
[2018-11-05] MEDS: Levofloxacin/Dextrose 5%-Water 100 ML IV SCH (16:24)
[2018-11-05] MEDS: Enoxaparin 40 MG/0.4 ML Syringe SUBCUT SCH (17:55)
[2018-11-05] MEDS: Pramipexole 0.125 MG Tab PO SCH ×2 (17:56→20:08)
[2018-11-05] MEDS: Simvastatin 20 MG Tab PO SCH (20:11)
[2018-11-06] MEDS: B.Bifidum/B.Longum/L.Acidophilus/L.Rhamnosus (Probiotic) Cap PO SCH ×2 (06:47→20:25)
[2018-11-06] MEDS: Omeprazole 20 MG Cap.CR PO SCH (06:47)
[2018-11-06 07:54] LABS: ANION GAP 10.7 mmol/L (5-15)
[2018-11-06] MEDS: Isosorbide Mononitrate 30 MG Tab.ER PO SCH (08:11)
[2018-11-06] MEDS: Enalapril 5 MG Tab PO SCH ×2 (08:11→20:25)
[2018-11-06] MEDS: Multivitamins with Minerals/Iron/Folic Acid/Lycopene Tab PO SCH (08:12)
[2018-11-06] MEDS: Carvedilol 12.5 MG Tab PO SCH ×2 (08:12→17:55)
[2018-11-06] MEDS: Furosemide 40 MG Tab PO SCH ×2 (08:12→16:13)
[2018-11-06] MEDS: Insuln Aspart Prot/Insulin Aspart 100 Units/ML 3 ML FlexPen SUBCUT SCH ×2 (08:12→17:54)
[2018-11-06] MEDS: Aspirin 325 MG Tab.EC PO SCH (08:12)
--- NOTE | 2018-11-06 08:45 | PN ---
11/05/2018 PATIENT NAME: VERONICA BEAULIEU SUBJECTIVE: Veronica is seen on inpatient rounds today. She is a 78-year-old female from the [facility], who was admitted through the clinic yesterday. She had not been feeling well for the past 3 to 4 days. She had chills at night and then after covering up, she felt better the next morning. She had developed a fever, cough and shortness of breath. She had her temp taken at home which was 100.4. She did have an initial white blood cell count of 24,000 with a left shift. She did have labs drawn today, which showed a white count improved at 12.56. She does have somewhat of a left shift, yet, it is better than before. Renal function is elevated. BUN at 27, creatinine 1.31 with a GFR of 39. The patient is feeling somewhat better today and does not offer any complaints. The patient's nurse today alerted me to the fact that she does have a reddened area on the right side of her abdomen that the nurse felt may be a cellulitis. The patient is being treated with Levaquin intravenously. She does have a past history of carotid artery disease, anemia, degenerative joint disease, diabetes mellitus, diverticulosis, gastroesophageal reflux disease, hypertension, hyperlipidemia, pulmonary hypertension, and stage 3 chronic kidney disease. OBJECTIVE: VITAL SIGNS: On exam today, her temp is 97.2, pulse 70, respirations 20, blood pressure is 109/50, oxygen saturation is 97% on room air. The patient was using oxygen up until this morning when she does not feel as though she needs it anymore. SKIN: Warm and dry to touch. There is a ruborous area on the right side of her abdomen which may represent a mild cellulitis. CARDIAC: Reveals S1, S2 to be normal. Rate and rhythm are regular. No murmur, click, or gallop is auscultated. LUNGS: Clear with possibly mild crackles in the left base. ABDOMEN: Soft, obese, nontender. EXTREMITIES: She does have extreme lymphedema in her lower extremities. IMPRESSION: 1. Fever, this is improved with her being afebrile this morning. 2. Generalized weakness. This may be from her recent acute illness. However, this does seem to be improving. 3. Neutrophilic leukocytosis. This has improved with her white count improving from 24,000 yesterday to 12,000 today. We will continue monitoring daily labs. Blood and sputum cultures are pending. The patient does not have a cough and the nursing staff was concerned that they will not be able to obtain a sputum, however, we will continue to attempt. UA with micro and culture were ordered as well. The patient is a DNR/DNI. She does plan to return home, and I do foresee this happening within the next couple of days. We are planning her discharge for possibly 11/07/2018 depending on her progress. If she is markedly improved by tomorrow, I believe she may be able to go home tomorrow. However, if there are any issues that would warrant one more hospital day, we will definitely keep her then. If nothing unforeseen happens prior to Saturday, we will plan to discharge her then. /[id number]/MODL
[2018-11-06] MEDS ORDERED: Furosemide 40 MG/4 ML VIAL IVPUSH ONE (10:30)
[2018-11-06] MEDS: Sodium Chloride 0.9% 10 ML Syringe FLUSH PRN (11:32)
[2018-11-06] MEDS ORDERED: Levofloxacin/Dextrose 5%-Water 100 ML IV SCH (15:30)
[2018-11-06] MEDS: Sodium Chloride 0.9% 100 ML IV SCH (16:13)
[2018-11-06] MEDS ORDERED: Levofloxacin/Dextrose 5%-Water 50 ML IV SCH (16:30)
[2018-11-06] MEDS: Enoxaparin 40 MG/0.4 ML Syringe SUBCUT SCH (17:54)
[2018-11-06] MEDS: Pramipexole 0.125 MG Tab PO SCH ×2 (17:55→20:25)
[2018-11-06] MEDS: Simvastatin 20 MG Tab PO SCH (20:25)
[2018-11-07] MEDS: B.Bifidum/B.Longum/L.Acidophilus/L.Rhamnosus (Probiotic) Cap PO SCH (06:44)
[2018-11-07] MEDS: Omeprazole 20 MG Cap.CR PO SCH (06:44)
[2018-11-07 08:08] LABS: ANION GAP 15.6 mmol/L (5-15)
[2018-11-07] MEDS: Multivitamins with Minerals/Iron/Folic Acid/Lycopene Tab PO SCH (08:09)
[2018-11-07] MEDS: Aspirin 325 MG Tab.EC PO SCH (08:09)
[2018-11-07] MEDS: Insuln Aspart Prot/Insulin Aspart 100 Units/ML 3 ML FlexPen SUBCUT SCH ×2 (08:09→17:30)
[2018-11-07] MEDS: Furosemide 40 MG Tab PO SCH ×2 (08:26→16:20)
[2018-11-07] MEDS: Isosorbide Mononitrate 30 MG Tab.ER PO SCH (08:28)
[2018-11-07] MEDS: Carvedilol 12.5 MG Tab PO SCH (08:28)
[2018-11-07] MEDS: Enalapril 5 MG Tab PO SCH (08:28)
[2018-11-07 08:30] VITALS: BP 155/64
--- NOTE | 2018-11-07 08:53 | PN ---
11/06/2018 PATIENT NAME: VERONICA BEAULIEU [place] SUBJECTIVE: Veronica is a 78-year-old female who is being seen today on inpatient rounds. She was admitted to the hospital on 11/04/2018, after seeing Dr. Christiane Callejas in the clinic. At that time, she had not been feeling well with chills, fever, cough and shortness of breath. Her initial white blood cell count was 24,000 in the clinic with a left shift. Yesterday, it improved to 12,000 and now today it is improved to 6920 with a neutrophil count of 86.3%, which is improved as well. She reports that she is feeling better. Due to her creatinine clearance, her Levaquin was changed from every 24 hours to every 48 hours, so she has only received one dose of the Levaquin since hospitalization. She does have a cellulitis on the right side of the abdomen, which could also be a contributing factor. She has had blood cultures as well as urine culture. Urine culture was considered to be contaminated. Blood cultures have been negative thus far. She has been afebrile. On her panel, BUN and creatinine are still elevated at 29 and 1.21 respectively with a GFR of 43. Her albumin is slightly low. Calcium is normal at 8.9. She feels less short of breath. She has gained 1.5 pounds. She is currently on Lasix 40 mg b.i.d. OBJECTIVE: VITAL SIGNS: On examination today, she is afebrile with a temp of 97, pulse of 70, respirations 20, blood pressure 110/60, O2 saturation of 97% on room air. SKIN: Pale, warm, and dry to touch. CARDIAC: Reveals S1, S2 to be normal. Rate and rhythm are regular. A 2/6 systolic murmurs is appreciated. LUNGS: Clear without rales, wheezes, or rhonchi. She does have considerable lymphedema and pitting edema of her lower extremities. IMPRESSION: 1. A 1.5-pound weight gain. We will give her an additional dose of Lasix 20 mg intravenously today in addition to her 40 mg p.o. b.i.d. 2. Fever. She has been afebrile since admission. 3. Generalized weakness today. This does seem to be improving. 4. Leukocytosis has resolved. 5. Cellulitis of the right abdomen. The patient does seem to be improving. We do plan to keep her for one more day to receive a second dose of Levaquin. She may go home on oral Levaquin tomorrow. She will be continued on her same medications that she was on prior to hospitalization. She will be discharged with Levaquin 250 mg daily for 7 days. She will follow up with Dr. Callejas when she returns. The patient was concerned that her daughter does not get off work until 5 o'clock and may not be here to get her until shortly after that. I do not see that as being a problem whatsoever. Labs are pending for the patient tomorrow. Barring any huge change in the patient's condition, we will plan for discharge in the morning. She will be discharged home as before. /[id number]/MODL
[2018-11-07] MEDS ORDERED: Furosemide 40 MG/4 ML VIAL IVPUSH ONE (10:55)
--- NOTE | 2018-11-10 09:10 | DISCH ---
DISCHARGE DIAGNOSIS: Final impression and discharge diagnoses: 1. Leukocytosis, which has resolved. 2. Fever, which has resolved. 3. Generalized weakness, which has improved. 4. Cellulitis of the right abdomen. This does seem to be improving with the intravenous Levaquin as well. 5. She has had a little bit more of weight gain. We will give her another dose of 20 mg IV in addition to the 40 mg that she receives p.o. b.i.d. 6. Diabetes mellitus, stable with acceptable glucose readings. 7. Hypertension, stable. HOSPITAL COURSE: This is a 78-year-old female who is being seen today on inpatient rounds. She was admitted to the hospital on 11/04/2018 from the clinic. At that time, she had been feeling poorly with chills, fever, cough and shortness of breath. Her initial white blood cell count was 24,000 with a left shift. On her second hospital day, her white blood cell count improved to 12,000 and yesterday was 6920 with a slightly elevated neutrophil count of 86.3%. Today, her white count is actually subnormal at 4400. The shift in the neutrophils has improved and is trending downward. The patient does have some renal insufficiency, which has altered the dosing of her Levaquin. BUN 32, creatinine 1.21 respectively today with a GFR of 43. Based on her creatinine clearance, her Levaquin was changed to 750 mg every 48 hours. She has improved since admission. She feels stronger and less weak. Her leukocytosis has improved. She does have a mild cellulitis on the right side of her abdomen, which may have been contributing to the elevated white blood cell count. Her urine was positive, however, urine culture suggested contamination. Her blood cultures were negative. Sputum culture was ordered. However, we have been unable to collect that due to the fact that the patient does not have a productive cough. PHYSICAL EXAM ON DISCHARGE: VITAL SIGNS: The patient is afebrile and has been for over 48 hours. Her pulse is 74, her respirations are 18, blood pressure is 155/64, her oxygen saturation is 96% on room air. Her weight today was 225 pounds and 8 ounces. She had actually went up by 3 ounces from yesterday despite the fact that she was given an extra 20 mg of furosemide IV yesterday in addition to the 40 mg that she takes b.i.d. p.o. SKIN: Warm and dry to touch. She does appear somewhat pale. Hemoglobin is 9.3. CARDIAC: Reveals S1, S2 to be normal. There is a 2/6 systolic murmur appreciated at the left sternal border. Rate and rhythm are regular. LUNGS: Clear without rales, wheezes, or rhonchi. She does have considerable lymphedema and pitting edema of her lower extremities. CONDITION TREATMENT AND FINAL DISPOSITION ON DISCHARGE AND PROGNOSIS: She will not be discharged later in the day closer to the evening due to the fact that her daughter does not get off work until then. The patient's condition is stable and she is returning to an independent living situation in [place], [place]. DISCHARGE MEDICATIONS: She will be discharged home with the only change in her medication being Levaquin 250 mg daily for 7 days. FOLLOW-UP RECOMMENDATIONS: She will follow up with Dr. Callejas in 1 week. /[id number]/MODL MTDD
== END 2018-11-07 17:40 | disposition home or self-care (01) | DRG 603 ==
LOC: KA.MS 13:45
PROVIDERS: ADMIT Internal Medicine; ATTEND Internal Medicine
DX: L03.311 Cellulitis of abdominal wall (principal); I13.0 Hypertensive heart and chronic kidney disease with heart failure and stage 1 through stage 4 chronic kidney disease, or unspecified chronic kidney disease; Z66 Do not resuscitate; R63.5 Abnormal weight gain; R53.1 Weakness; D64.9 Anemia, unspecified; L60.3 Nail dystrophy; Z68.36 Body mass index [BMI] 36.0-36.9, adult; G89.29 Other chronic pain; M25.512 Pain in left shoulder; M25.511 Pain in right shoulder; K21.9 Gastro-esophageal reflux disease without esophagitis; E78.5 Hyperlipidemia, unspecified; G47.33 Obstructive sleep apnea (adult) (pediatric); M17.10 Unilateral primary osteoarthritis, unspecified knee; G25.81 Restless legs syndrome; I50.9 Heart failure, unspecified; N18.3 Chronic kidney disease, stage 3 (moderate); E11.22 Type 2 diabetes mellitus with diabetic chronic kidney disease; I77.9 Disorder of arteries and arterioles, unspecified; Z96.642 Presence of left artificial hip joint; Z96.651 Presence of right artificial knee joint; Z88.0 Allergy status to penicillin; Z79.82 Long term (current) use of aspirin; Z79.4 Long term (current) use of insulin; Z98.49 Cataract extraction status, unspecified eye; Z90.710 Acquired absence of both cervix and uterus
CPT/HCPCS: 36415; 80053; 81001; 82962; 85025; 87040; 87086; 97161-GP; A9270-GY; J1650; J1815-GY; J1940; J1956; J7050

== ENCOUNTER 2018-12-28 12:20 | Emergency (ER) | payer MEDICARE, MEDICAID ==
[2018-12-28] MEDS ORDERED: Albuterol/Ipratropium 3.0-0.5 MG/3 ML Neb Soln ONE (12:44)
[2018-12-28] MEDS ORDERED: Albuterol/Ipratropium 3.0-0.5 MG/3 ML Neb Soln INH ONE (13:00)
[2018-12-28] MEDS ORDERED: Acetaminophen 650 MG Supp RECTAL ONE (13:17)
[2018-12-28 13:30] LABS: ANION GAP 13.8 mmol/L (5-15); CHLORIDE,CL 105 mmol/L (98-115); SODIUM,NA 146 mmol/L (136-145)
--- NOTE | 2018-12-28 13:37 | CR ---
[id number] RAD/RAD Chest PA or AP 1V EXAM: RAD Chest PA or AP 1V INDICATION: SHORT OF BREATH,RESPIRATORY DISTRESS. COMPARISON: November 04, 2018. DISCUSSION: Cardiomediastinal silhouette is enlarged. There is central pulmonary vascular congestion with patchy airspace opacification seen bilaterally. Small to moderate bilateral pleural effusions. No pneumothorax. IMPRESSION: Findings suggestive of moderate congestive heart failure exacerbation. Michael Trevizo DO 12/28/18 1336 Thank you for allowing us to participate in the care of your patient.
[2018-12-28] MEDS ORDERED: Levofloxacin/Dextrose 5%-Water 500 MG in Premix Bag 1 BAG IV ONE (13:44)
[2018-12-28] MEDS: Sodium Chloride 0.9% 1,000 ML IV ONE ×2 (13:57)
[2018-12-28] MEDS ORDERED: Iopamidol 755 Mg/ML 75 ML Bottle IVPUSH ONE (14:07)
[2018-12-28] MEDS ORDERED: Furosemide 40 MG/4 ML VIAL IVPUSH ONE (14:40)
[2018-12-28] MEDS ORDERED: Aspirin 81 MG Tab.Chew PO ONE (14:42)
--- NOTE | 2018-12-28 15:16 | CT ---
[id number] CT/CT Abdomen Pelvis W IV EXAM: CT Abdomen Pelvis W IV CLINICAL DATA: SEPSIS. COMPARISON STUDY: None. FINDINGS: Moderate to large bilateral pleural effusions with associated compressive atelectasis. The heart is enlarged. Mosaic attenuation of the lungs consistent with pulmonary edema appear Liver, spleen, and adrenal glands are unremarkable. Severe fatty infiltration of the pancreas. The gallbladder is not well seen and may be absent. Punctate nonobstructing left renal calculus. The kidneys are otherwise unremarkable without hydronephrosis or hydroureter. No bowel obstruction. There is no definite inflammation however evaluation is somewhat limited secondary to diffuse mesenteric edema. Small amount of ascites. There appears to be a lateral wall hernia on the right which contains free fluid is ischemia can't with perihepatic free fluid. Diffuse anasarca. Extensive mesenteric edema. Atherosclerotic calcifications of the aorta and its branches. Evaluation of the pelvis is limited secondary to streak artifact from left hip arthroplasty. Scattered changes of spondylosis the spine. No fracture or osseous lesion. IMPRESSION: 1. Suggestion of fluid overload including moderate to large bilateral pleural effusions, diffuse anasarca, small to moderate volume ascites as well as mesenteric edema. Additionally there is mosaic attenuation of the lungs in the setting of cardiomegaly which could be seen with pulmonary edema. Michael Trevizo DO 12/28/18 1514 Thank you for allowing us to participate in the care of your patient.
[2018-12-28 16:14] VITALS: BP 133/47
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
[2018-12-29] MEDS: Sodium Chloride 0.9% 1,000 ML IV ONE (10:27)
== END 2018-12-28 16:35 ==
LOC: KA.ED 12:20
DX: A41.9 Sepsis, unspecified organism (principal); J12.81 Pneumonia due to SARS-associated coronavirus; R65.20 Severe sepsis without septic shock; I13.0 Hypertensive heart and chronic kidney disease with heart failure and stage 1 through stage 4 chronic kidney disease, or unspecified chronic kidney disease; E11.22 Type 2 diabetes mellitus with diabetic chronic kidney disease; N18.3 Chronic kidney disease, stage 3 (moderate); I50.9 Heart failure, unspecified; R10.84 Generalized abdominal pain; K21.9 Gastro-esophageal reflux disease without esophagitis; E78.00 Pure hypercholesterolemia, unspecified; R79.89 Other specified abnormal findings of blood chemistry; Z79.4 Long term (current) use of insulin; Z79.899 Other long term (current) drug therapy; Z88.0 Allergy status to penicillin
CPT/HCPCS: 51702; 71045; 74177; 80048; 81001; 82550; 82553; 83605; 83880; 84484; 85025; 85651; 86140; 87040; 93005; 94640; 96365; 96367; 96375; 99285; 99285-25; A9270-GY; J1940; J1956; J3370; J7030; J7050; J7620-GY; Q9967